=== PATIENT | male | born 1990 | race Caucasian/White ===

== ENCOUNTER 2017-02-18 01:43 | Emergency (ER) | payer BC, OTHER ==
[~2017-02-18] VITALS: Ht 177.8 cm; Wt 75.0 kg
[2017-02-18 01:52] VITALS: Ht 177.8 cm; Wt 75.0 kg
--- NOTE | 2017-02-18 01:55 | EMERGENCY ROOM VISIT NOTE ---
History Report prepared by Scribe: Eunice Campa Under the Supervision of: Dr. Latoya Mccabe D.O. First contact with patient: 01:44 Chief Complaint: ALCOHOL OVERDOSE Stated Complaint: ALCOHOL OVERDOSE History of Present Illness The patient is a 26 year old male who presents to the Emergency Room with complaints of an alcohol overdose. He was brought to the ED via EMS. He reports he is a [employer] alum and is in town visiting friends for the football game tomorrow. He admits to drinking at the [employer] this evening. Nursing staff states he got a public drunkenness citation outside one of the bars and blew a .285 when the police cited him, so he was brought to the ED. The patient admits he does not know where his friends are, but states some of them were sober this evening. He denies any chronic health problems. He denies any other drug use besides ETOH. He denies any recent falls, head trauma or vomiting today. 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 A total of 10 systems reviewed and were otherwise negative. Past Medical & Surgical Medical Problems: (1) No significant past medical history Social History Alcohol Use: occasionally Drug Use: none Marital Status: single Housing Status: lives with roommate Occupation Status: employed Current/Historical Medications No Active Prescriptions or Reported Meds Allergies Coded Allergies: No Known Allergies (Unverified , 02/18/17) Physical Exam Vital Signs Date Time Temp Pulse Resp B/P (MAP) Pulse Ox O2 Delivery O2 Flow Rate FiO2 02/18/17 06:53 36.5 120 21 128/65 95 02/18/17 06:16 120 21 128/65 95 Room Air 02/18/17 05:05 82 02/18/17 05:00 81 19 110/63 96 02/18/17 04:00 86 20 114/64 94 02/18/17 03:52 86 107/73 94 Room Air 02/18/17 01:53 112 02/18/17 01:52 36.5 94 15 151/97 94 Room Air Physical Exam General: The patient is cooperative and smells of alcohol. HEENT: Head - normocephalic and atraumatic Pupils are 4 mm and sluggishly reactive to light. Extraocular eye muscles are intact, and sclera are injected. Nose - moist nasal mucosa without discharge. Mouth - moist buccal mucosa. Oropharynx is nonerythematous and there is no tonsillar exudate or edema noted. Neck: Supple; no JVD, nuchal rigidity, cervical lymphadenopathy. Heart: Regular rate and rhythm. There is a normal S1 and S2 with no murmurs, clicks, or gallops appreciated. Lungs: Clear to auscultation bilaterally with no wheezes, rales, or rhonchi. Abdomen: Soft, completely nontender, nondistended, with good bowel sounds. There are no palpable pulsatile masses or hepatosplenomegaly. There is no guarding, rigidity, or rebound noted. Extremities: No evidence of cyanosis, clubbing, or edema. There are easily palpable peripheral pulses. Skin: warm and dry with good turgor and no rashes. Medical Decision & Procedures Laboratory Results 02/18/17 01:52 Test 02/18/17 01:52 Anion Gap 9.0 mmol/L (3-11) Est Creatinine Clear Calc Drug Dose 123.4 ml/min Estimated GFR () 130.7 Estimated GFR (Non- 112.8 BUN/Creatinine Ratio 7.8 (10-20) Calcium Level 8.4 mg/dl (8.5-10.1) Ethyl Alcohol mg/dL 344.0 mg/dl (0-3) Laboratory results per my review. ED Course 0145: Past medical records reviewed. The patient was evaluated in room B4. A complete history and physical exam was performed. Labs were drawn as above. The patient was observing the information systems director impulsive oximeter. 0523: I reevaluated the patient. He is asleep. 0610: I reevaluated the patient. He is awake. He again denies any past medical history or trauma last night. He is going to try calling a sober friend to come pick him up. 0634: Nursing staff informed me the patient has a friend coming to get him. Medical Decision The patient is a 26 year old male who presents to the ED with an alcohol overdose. Differential diagnosis includes ETOH overdose, drug intoxication, head injury and hypoglycemia. Lab results show Alcohol is 344. Glucose is 119. Normal renal function. The patient was brought to the emergency department tonight after consuming too much alcohol. The patient was able to rest or here in the emergency department. He was observed until he was more sober. Medication Reconcilliation Current Medication List: was personally reviewed by me Blood Pressure Screening Patient's blood pressure: Normal blood pressure Blood pressure disposition: Did not require urgent referral Impression Primary Impression: Alcohol overdose Scribe Attestation The scribe's documentation has been prepared under my direction and personally reviewed by me in its entirety. I confirm that the note above accurately reflects all work, treatment, procedures, and medical decision making performed by me. Departure Information Dispostion Home / Self-Care Prescriptions No Active Prescriptions or Reported Meds Referrals [facility] (PCP) Patient Instructions ED Overdose Alcohol, My [facility] Additional Instructions Rest. Take a bland diet today and plenty of clear liquids Avoid such excessive alcohol use in the future. Problem Qualifiers Primary Impression: Alcohol overdose Encounter type: initial encounter Injury intent: accidental or unintentional Qualified Codes: T51.91XA - Toxic effect of unspecified alcohol , accidental (unintentional), initial encounter
[2017-02-18 02:16] LABS: BUN/CREATININE RATIO 7.8 (10-20); CALCIUM 8.4 mg/dl (8.5-10.1); CREATININE 0.92 mg/dl (0.60-1.40); POTASSIUM 3.3 mmol/L (3.5-5.1)
[2017-02-18 06:53] VITALS: BP 128/65; PULSE 120; TEMP 36.5; O2SAT 95
== END 2017-02-18 06:53 | disposition home or self-care (01) ==
LOC: EDBD 01:43 → C.EDB 01:44
DX: T51.91XA Toxic effect of unspecified alcohol, accidental (unintentional), initial encounter (principal)